=== PATIENT | female | born 1975 | race Caucasian/White ===

== ENCOUNTER 2018-04-22 09:00 | Day surgery (SDC) | payer OTHER ==
[~2018-04-22] VITALS: Ht 149.9 cm; Wt 78.5 kg
[~2018-04-22 09:00] MED LIST: CITALOPRAM HBR40 MG PO; IBUPROFEN800 MG PO; INDOMETHACIN50 MG PO; NORCO 5-325 TA1 EACH PO
--- NOTE | 2018-04-22 11:09 | NUR ---
04/22/18 1109 Alessandra Desouza 1104 PT ARRIVED ON RA AND AWAKE AND TALKING. PT DENIES PAIN AND NAUSEA.
--- NOTE | 2018-04-22 12:33 | OR ---
[facility] [address], [place] [address] Signed DATE OF OPERATION: 04/22/2018 SURGEON: Blayne Hargrove MD PREOPERATIVE DIAGNOSIS: Pilonidal cyst with sinus tract. POSTOPERATIVE DIAGNOSIS: Pilonidal cyst with sinus tract. PROCEDURE PERFORMED: Pilonidal cystectomy. ESTIMATED BLOOD LOSS: None. INDICATIONS FOR PROCEDURE: Idania is a 42-year-old lady, who was asked to see me for her pilonidal cyst. She noticed it in December 2017. She said it will drain, heal over, then she feels the pressure buildup and it drains again. She said she can hardly function, until it finally burst. In the office, I could see two pits in the midline of her gluteal crease and just at the top of the gluteal crease was an opening for her sinus tract containing granulation tissue. I explained to Idania the nature of a pilonidal cyst and the idea of a pilonidal cystectomy to excise in the midline as well as that sinus tract. We will leave that open to heal in secondarily with saline-soaked gauze packing. She told me her was available to help her with that. She understands the nature of the surgery, all the expected intraop and postop course. There is risk to surgery including, but not limited to bleeding, infection, scarring, change in contour of the skin as well as recurrent pilonidal cyst. She had expressed understanding and wished to proceed. PROCEDURE NOTE: Idania was given a saddle block by our nurse quality improvement engineer. After this, she was taken into our operating room and placed in the prone jackknife position with appropriate padding and monitoring. She was given preoperative antibiotics along with subcutaneous heparin. SCDs were utilized. She was then prepped and draped in the usual sterile fashion. After this, we examined the gluteal crease and we could see the two small pits in the sinus tract as it exits at the superior portion of the gluteal crease. We used an elliptical incision with a 15-blade knife and went around these three areas and then carried it down into the subcutaneous tissues with the cautery. She had some induration Electronically Signed By: BLAYEN HARGROVE MD 04/22/18 1233 PATIENT NAME: IDANIA KIM OPERATIVE REPORT DATE OF : 77 REPORT #: [id number] PHYSICIAN: BLAYNE HARGROVE MD PCP: LETICIA FELDMAN PAC REPORT IS CONFIDENTIAL AND NOT TO BE RELEASED WITHOUT AUTHORIZATION [facility] [address] [place] [id number] Signed around the sinus tracts, so went a little bit wider around that area to include all that indurated tissue and we carefully excised the whole area en bloc. We never crossed the sinus tract. We felt very confident there were no additional sinus tracts heading off at the periphery of our dissection. After this, local anesthetic was copiously injected in the wound. The wound was irrigated and suctioned out until clear. We used 4 x 4 saline-soaked gauze and placed it into the wound and covered that with a dry ABD along with some mesh underwear. Idania was then rotated into the supine position onto her hospital bed and taken into recovery room in stable condition. MD SMITHA Mixon/MELANIA /[id number] cc: Dr. Erick Feldman Copies: ~ Electronically Signed By: BLAYNE HARGROVE MD 04/22/18 1233 PATIENT NAME: IDANIA KIM OPERATIVE REPORT DATE OF : 77 REPORT #: [id number] PHYSICIAN: BLAYNE HARGROVE MD PCP: LETICIA FELDMAN PAC REPORT IS CONFIDENTIAL AND NOT TO BE RELEASED WITHOUT AUTHORIZATION
== END 2018-04-22 12:05 | disposition home or self-care (01) ==
LOC: DS 09:00
PROVIDERS: Colon & Rectal Surgery
PROC: 0JB90ZZ Excision of Buttock Subcutaneous Tissue and Fascia, Open Approach (ICD-10-PCS; principal; 2018-04-22 10:45)
DX: L05.91 Pilonidal cyst without abscess (principal); J45.909 Unspecified asthma, uncomplicated; F32.9 Major depressive disorder, single episode, unspecified; K58.9 Irritable bowel syndrome, unspecified; E28.2 Polycystic ovarian syndrome; Z88.1 Allergy status to other antibiotic agents; Z79.899 Other long term (current) drug therapy
CPT/HCPCS: 00300; J0690; J1644; J1885; J2250; J2405; J2704; J7120